=== PATIENT | female | born 1955 | race Caucasian/White ===

== ENCOUNTER 2024-04-23 22:06 | Emergency (ER) | payer SELFPAY ==
[2024-04-23 22:09] VITALS: BP 144/91; BMI 31.6
[2024-04-23 22:12] VITALS: BP 144/91
--- NOTE | 2024-04-23 22:17 | ED.GENMED ---
History of Present Illness
General
Chief Complaint: Fainting/Passed Out
Source: patient
Exam Limitations: none
Time Seen by Provider: 04/23/24 22:08
History of Present Illness
History of Present Illness:
68-year-old female presents via EMS from a wedding after what sounds like a near syncopal versus syncopal episode. She was sitting after having several drinks and dinner and developed some nausea. She then started to feel lightheaded and had
tunnel vision. Bystanders describe that her eyes were open but she was not clearly responding. EMS got there she was pale on arrival to try to stand her up and her blood pressure dropped again. Patient was nauseous throughout this episode but did
not have any chest pain or shortness of breath. She is treated for hypertension. She denies leg swelling or calf pain. She denies any chest pain. She is feeling better after some fluids to EMS.
Phy Exam
Physical Exam
Physical Exam:
General: Well-appearing female no acute respiratory distress
HEENT: Normocephalic atraumatic no bite quintero to the tongue
Heart: Regular rate and rhythm no murmurs
Lungs: Clear no wheeze
Extremities: No cyanosis
Neurologic exam: Alert and oriented
Course
Orders/Labs/Results
Orders:
Orders
04/23/24 22:11
Electrocardiogram (*1) Urgent
Reason for Study: Syncope
EKG- Treatment ONCE
04/23/24 22:37
Complete Blood Count/With Diff Urgent
04/23/24 23:11
Comprehensive Metabolic Panel Urgent
Abnormal Lab Results
04/23/24 04/24/24
22:37 00:14
WBC 13.6 H 10^3/uL
(4.8-10.8)
MCH 31.2 H pg
(27.0-31.0)
Abs Immat Gran (auto) 0.1 H 10^3/uL
(0-0.05)
Absolute Neuts (auto) 10.7 H 10^3/uL
(1.4-6.5)
Absolute Monos (auto) 1.1 H 10^3/uL
(0.1-0.6)
Neutrophils % 78.6 H %
(42.2-75.2)
Lymphocytes % 11.2 L %
(20.5-51.1)
Potassium 3.3 L mmol/L
(3.5-5.1)
Chloride 96 L mmol/L
(98-107)
BUN 18 H mg/dl
(7-17)
Creatinine 1.1 H mg/dL
(0.6-1.0)
Glucose 108 H mg/dl
(70-99)
04/23/24 22:37
04/24/24 00:14
Vital Signs
Initial and Last Documented VS:
Initial Vital Signs
Temp Pulse Resp BP Pulse Ox
98.6 F 77 18 144/91 97
04/23/24 22:09 04/23/24 22:09 04/23/24 22:09 04/23/24 22:09 04/23/24 22:09
Last Documented Vital Signs
Temp Pulse Resp BP Pulse Ox
98.6 F 77 23 144/91 97
04/23/24 22:09 04/23/24 22:45 04/23/24 22:45 04/23/24 22:12 04/23/24 22:45
MDM/Problems Addressed
Differential Diagnosis Includes:
Question near syncope versus syncope. Differential could include vasovagal episode versus anemia versus electrolyte abnormality versus arrhythmia
EKG pending. Placed on monitor. Fluids started through EMS will continue. Check labs.
EMS demonstrated that her blood sugar was 130.
*Critical Care Note
Total Time (30-74mins, 75-104mins- exclusive of procedures): Not Applicable
Update Note
Update Note:
Workup shows no arrhythmias. Potassium minimally low at 3.3. Recommended rechecking with And considering [id number] potassium supplement. Patient has been ambulatory to the bathroom here. Vital signs remained stable. She is feeling
much better. I suspect underlying vasovagal episode causing today's reason for visit. No indication for admission. Stable for discharge.
ED Attending Note
-
Portions of this chart may have been created with voice recognition software.� Occasional wrong word or��sound alike� substitutions may have occurred due to the inherent limitations of voice recognition software.
Discharge Plan
Departure
Patient Disposition: Home (Routine Discharge)
Date of Disposition: 04/24/24
Time of Disposition: 01:02
Patient with high blood pressure during this ER visit?: No
Discharge Problem:
Syncope, vasovagal
Instructions: Syncope (Fainting) (DC)
Referrals:
MIQUEL HUNTLEY [Other]
Activity Restrictions/Additional Instructions:
Stay hydrated. Please return here for worsening symptoms otherwise follow-up with your family doctor
Interventions
Interventions:
*Risk Screen - Suicide Last Done: 04/23/24 22:09
*General Assessment Last Done: 04/23/24 22:09
*Neglect/Abuse Screening Last Done: 04/23/24 22:09
Discharge Date and Time
Print Language: [email or web address]
[2024-04-23 22:43] LABS: % Basophils 0.7 % (0-2); % Eosinophils 1.2 % (0-6); % Immature Granulocytes 0.5 % (0-0.5); % Lymphocytes 11.2 % (20.5-51.1); % Monocytes 7.8 % (1.7-9.3); % Neutrophils 78.6 % (42.2-75.2); Absolute Basophils 0.1 10^3/uL (0-0.2); Absolute Eosinophils 0.2 10^3/uL (0-0.7); Absolute Immature Granulocytes 0.1 10^3/uL (0-0.05); Absolute Lymphocytes 1.5 10^3/uL (1.2-3.4); Absolute Monocytes 1.1 10^3/uL (0.1-0.6); Absolute Neutrophils 10.7 10^3/uL (1.4-6.5); Hemoglobin 13.2 g/dL (12.0-16.0); Mean Corp Hgb Conc. 34.7 g/dL (33.0-37.0); Mean Corpuscular Hgb 31.2 pg (27.0-31.0); Mean Corpuscular Volume 89.8 fL (81.0-99.0); Mean Platelet Volume 9.6 fL (7.4-10.4); Nucleated Red Blood Cells % 0 %; Platelet Count 288 10^3/uL (130-400); Red Blood Cell Count 4.23 10^6/uL (4.20-5.40); Red Cell Dist. Width 12.6 % (11.5-14.5); White Blood Cell Count 13.6 10^3/uL (4.8-10.8)
[2024-04-23 23:00] VITALS: BP 150/82
[2024-04-24] VITALS: BP 161/80
[2024-04-24 00:47] LABS: ALT (SGPT) 28 U/L (0-35); AST (SGOT) 26 U/L (14-36); Albumin 4.7 g/dl (3.5-5.0); Alkaline Phosphatase 64 U/L (38-126); Blood Urea Nitrogen 18 mg/dl (7-17); Calcium 9.8 mg/dl (8.4-10.2); Carbon Dioxide 23 mmol/L (22-30); Chloride 96 mmol/L (98-107); Estimated Creatinine Clearance 57 ml/min; Glucose 108 mg/dl (70-99); Potassium 3.3 mmol/L (3.5-5.1); Sodium 138 mmol/L (135-145); Total Bilirubin 0.4 mg/dl (0.2-1.3); Total Protein 7.5 g/dl (6.3-8.2); eGFR 54.73
[2024-04-24 01:00] VITALS: BP 150/83
== END 2024-04-24 01:24 | disposition home or self-care (01) ==
LOC: EMR 22:06
PROVIDERS: EMERGENCY PHYSICIAN Emergency Medicine
DX: R55 Syncope and collapse (principal); R11.0 Nausea; I10 Essential (primary) hypertension
CPT/HCPCS: 99283; 80053; 85025; 93005